=== PATIENT | female | born 1985 | race Two or more races ===

== ENCOUNTER 2022-06-16 13:45 | Inpatient (IN) | payer OTHER ==
[~2022-06-16] VITALS: Ht 152.4 cm; Wt 68.0 kg
== END 2022-07-16 11:51 | disposition home or self-care (01) | DRG 788 ==
LOC: SURH 07-02 13:45 → OB/GYN 07-12 15:16 → LDR 07-12 15:16 → OB/GYN 07-13 17:07
PROVIDERS: ADMIT Obstetrics & Gynecology Maternal & Fetal Medicine; ATTEND Obstetrics & Gynecology Maternal & Fetal Medicine
PROC: 10D00Z1 Extraction of Products of Conception, Low, Open Approach (ICD-10-PCS; principal; 2022-07-12)
PROC: 4A1HXCZ Monitoring of Products of Conception, Cardiac Rate, External Approach (ICD-10-PCS; 2022-07-12)
DX: O48.0 Post-term pregnancy (principal); Z3A.41 41 weeks gestation of pregnancy; Z37.0 Single live birth; Z20.822 Contact with and (suspected) exposure to COVID-19

== ENCOUNTER 2022-06-26 09:24 | Outpatient (CLI) | payer OTHER | END 2022-06-26 09:48 | disposition home or self-care (01) | LOC: NST 09:24 | PROVIDERS: ATTEND Obstetrics & Gynecology Gynecology | DX: Z34.83 Encounter for supervision of other normal pregnancy, third trimester (principal) ==

== ENCOUNTER 2022-06-26 10:16 | Emergency (ER) | payer OTHER ==
[~2022-06-26] VITALS: Ht 157.5 cm; Wt 67.1 kg
== END 2022-06-26 15:50 | disposition home or self-care (01) ==
LOC: ER 10:16
DX: S99.911A Unspecified injury of right ankle, initial encounter (principal); O26.893 Other specified pregnancy related conditions, third trimester; Z3A.39 39 weeks gestation of pregnancy; X58.XXXA Exposure to other specified factors, initial encounter; Y93.9 Activity, unspecified; Y92.9 Unspecified place or not applicable

== ENCOUNTER 2022-07-01 12:14 | Outpatient (CLI) | payer OTHER | END 2022-07-01 13:07 | disposition home or self-care (01) | LOC: NST 12:14 | PROVIDERS: ATTEND Obstetrics & Gynecology | DX: Z34.83 Encounter for supervision of other normal pregnancy, third trimester (principal) ==

== ENCOUNTER 2022-07-04 09:00 | Outpatient (CLI) | payer OTHER | END 2022-07-04 12:21 | disposition home or self-care (01) | LOC: NST 09:00 | PROVIDERS: ATTEND Obstetrics & Gynecology | DX: Z34.83 Encounter for supervision of other normal pregnancy, third trimester (principal) ==

== ENCOUNTER 2022-07-09 11:23 | Outpatient (CLI) | payer OTHER | END 2022-07-09 12:16 | disposition home or self-care (01) | LOC: NST 11:23 | PROVIDERS: ATTEND Obstetrics & Gynecology | DX: Z34.83 Encounter for supervision of other normal pregnancy, third trimester (principal) ==